=== PATIENT | female | born 1990 | race Caucasian/White ===

== ENCOUNTER 2020-07-22 12:39 | Inpatient (IN) ==
[2020-07-22 11:54] LABS: Basophils % 0.2 %; Eosinophils # 0.1 K/mcL (0.0-0.6); Lymphocytes # 1.9 K/mcL (0.6-4.6); Mean Corpuscular HGB Conc 32.8 g/dL (31.6-35.5); Monocytes # 0.6 K/mcL (0.0-1.3)
[2020-07-22 12:03] LABS: Amphetamine Screen,Urine Negative ng/mL (Cutoff=1000); Barbiturate Screen,Urine Negative ng/mL (Cutoff=200); Benzodiazepines Screen,Urine Negative ng/mL (Cutoff=200); Cannabinoid Screen,Urine Negative ng/mL (Cutoff = 50); Cocaine Screen,Urine Negative ng/mL (Cutoff= 300); Opiate Screen,Urine Negative ng/mL (Cutoff=300); Phencyclidine Screen,Urine Negative ng/mL (Cutoff=25)
[~2020-07-22 12:39] MED LIST: *HR* Nalbuphine 10 MG/ML AMPUL IV PRN; Famotidine 20 MG/2 ML VIAL IVP PRN; Lidocaine 1% 20 ML MDV INFILT PRN; Metoclopramide 10 MG/2 ML VIAL IVP PRN; Naloxone 0.4 MG/ML INJ IVP PRN; Ondansetron 4 MG/2 ML VIAL IVP PRN; Ringers Solution, Lactated 1,000 ML IVC SCH; miSOPROStoL 100 MCG TABLET PO ONE; miSOPROStoL 100 MCG TABLET VG SCH
[2020-07-22 13:50] LABS: Eosinophils % 1.2 %; Hematocrit 38.7 % (35.3-44.9); Hemoglobin 12.7 g/dL (11.5-15.4); Immature Granulocytes % 0.5 % (0-4); Mean Corpuscular Volume 88.4 fL (83.0-100.0); Mean Platelet Volume 10.8 fL (9.4-12.4); Monocytes % 6.8 %; Neutrophils # 6.4 K/mcL (1.6-8.9); Platelet Count 272 K/mcL (140-400); Red Blood Count 4.38 M/mcL (3.82-4.97); Red Cell Distribution Width 12.6 % (11.5-14.5); Segmented Neutrophils % 70.3 %; White Blood Count 9.1 K/mcL (4.3-11.1)
[2020-07-22] MEDS ORDERED: miSOPROStoL 100 MCG TABLET VG SCH (17:30)
[2020-07-22] MEDS ORDERED: Oxytocin 20 units/ LR 1000 mL 20 UNIT/1,000 ML BAG IVC ONE (19:50)
[2020-07-22] MEDS ORDERED: *HR* FentaNYL (PF) 100 MCG/2 ML VIAL ONE (23:53)
[2020-07-22] MEDS ORDERED: *HR* Propofol 200 MG/20 ML VIAL IVP ONE (23:53)
[2020-07-22] MEDS ORDERED: *HR* Midazolam HCl 2 MG/2 ML VIAL ONE (23:53)
[2020-07-22] MEDS ORDERED: Ondansetron 4 MG/2 ML VIAL ONE (23:54)
[2020-07-22] MEDS ORDERED: Dexamethasone 4 MG/ML VIAL ONE (23:54)
[2020-07-22] MEDS ORDERED: Lidocaine -MPF 2% 5 ML VIAL ONE (23:54)
[2020-07-23] MEDS ORDERED: *HR* OxyCODONE Immed Rel 5 MG TABLET PO PRN (00:17)
[2020-07-23] MEDS ORDERED: Ketorolac 30 MG/ML VIAL ONE (00:41)
[2020-07-23] MEDS ORDERED: Acetaminophen IV 1,000 MG/100 ML BAG IVPB ONE (00:46)
[2020-07-23] MEDS ORDERED: Methylergonovine 0.2 MG/ML AMPUL IM ONE (03:33)
== END 2020-07-23 03:34 | disposition home or self-care (01) | DRG 770 ==
LOC: 1NENULAB
PROVIDERS: ADMIT Obstetrics & Gynecology; ATTEND Obstetrics & Gynecology

== ENCOUNTER → 2022-03-08 20:35 | Observation (INO) ==
[2022-03-08 20:01] LABS: Bacteria,Urine Few per hpf (None-Few); Bilirubin,Urine Negative (Negative); Blood,Urine Negative (Negative); Clarity,Urine Turbid (Clear); Color,Urine Light-Yellow (Yellow); Glucose,Urine (UA) Normal (Normal); Ketones,Urine Negative (Negative); Leukocyte Esterase,Urine Moderate (Negative); Mucus,Urine Few per lpf (None-Few); Nitrite,Urine Negative (Negative); Protein,Urine Negative (Neg-Trace); RBC,Urine 0-3 per hpf (0-3); Specific Gravity,Urine < 1.005 (1.010-1.025); Squamous Epithelial Cell,Urine Moderate per hpf (None-Few); Urobilinogen,Urine Normal (Normal)
[~2022-03-08 20:35] MED LIST changes: -*HR* Nalbuphine 10 MG/ML AMPUL IV PRN; -Famotidine 20 MG/2 ML VIAL IVP PRN; -Lidocaine 1% 20 ML MDV INFILT PRN; +MethylPREDNISolone 40 MG/ML VIAL IM ONE; -Metoclopramide 10 MG/2 ML VIAL IVP PRN; -Naloxone 0.4 MG/ML INJ IVP PRN; -Ondansetron 4 MG/2 ML VIAL IVP PRN; -Ringers Solution, Lactated 1,000 ML IVC SCH; -miSOPROStoL 100 MCG TABLET PO ONE; -miSOPROStoL 100 MCG TABLET VG SCH
[2022-03-08 22:22] LABS: Adenovirus Not Detected (Not Detect); Coronavirus 229E Not Detected (Not Detect); Coronavirus HKU1 Not Detected (Not Detect); Coronavirus NL63 Not Detected (Not Detect); Coronavirus OC43 Not Detected (Not Detect); Human Metapneumovirus Not Detected (Not Detect); Human Rhinovirus/Enterovirus Not Detected (Not Detect); Influenza A Subtype 2009 H1 Not Detected (Not Detect); SARS-CoV-2 Not Detected (Not Detect)
[2022-03-08 22:24] LABS: Bordetella Pertussis Not Detected (Not Detect); Chlamydophila pneumoniae Not Detected (Not Detect); Influenza B Not Detected (Not Detect); Mycoplasma pneumoniae Not Detected (Not Detect); Parainfluenza Virus 1 Not Detected (Not Detect); Parainfluenza Virus 2 Not Detected (Not Detect); Parainfluenza Virus 3 Not Detected (Not Detect); Parainfluenza Virus 4 Not Detected (Not Detect); Respiratory Syncytial Virus Not Detected (Not Detect)
== END | disposition home health service (06) ==
LOC: 1NENULAB
PROVIDERS: ADMIT Advanced Practice Midwife; ATTEND Advanced Practice Midwife

== ENCOUNTER 2022-03-30 08:53 | Inpatient (IN) ==
[~2022-03-30 08:53] MED LIST changes: +Famotidine 20 MG/2 ML VIAL IVP PRN; -MethylPREDNISolone 40 MG/ML VIAL IM ONE; +Metoclopramide 10 MG/2 ML VIAL IVP PRN; +Naloxone 0.4 MG/ML INJ IVP PRN
[2022-03-30] MEDS ORDERED: miSOPROStoL 25 MCG TABLET PO PRN (09:34)
[2022-03-30 09:45] LABS: Amphetamine Screen,Urine Negative ng/mL (Cutoff=1000); Barbiturate Screen,Urine Negative ng/mL (Cutoff=200); Benzodiazepines Screen,Urine Negative ng/mL (Cutoff=200); Cannabinoid Screen,Urine Negative ng/mL (Cutoff = 50); Cocaine Screen,Urine Negative ng/mL (Cutoff= 300); Opiate Screen,Urine Negative ng/mL (Cutoff=300); Phencyclidine Screen,Urine Negative ng/mL (Cutoff=25)
[2022-03-30 09:51] LABS: Hematocrit 33.6 % (35.3-44.9); Hemoglobin 10.8 g/dL (11.5-15.4); Mean Corpuscular HGB Conc 32.1 g/dL (31.6-35.5); Mean Corpuscular Hemoglobin 29.3 pg (28.0-33.3); Mean Corpuscular Volume 91.1 fL (83.0-100.0); Mean Platelet Volume 10.2 fL (9.4-12.4); Platelet Count 353 K/mcL (140-400); Red Blood Count 3.69 M/mcL (3.82-4.97); Red Cell Distribution Width 14.7 % (11.5-14.5); White Blood Count 10.7 K/mcL (4.3-11.1)
[2022-03-30 10:31] LABS: Lymphocytes # 6.2 K/mcL (0.6-4.6); Monocytes # 1.1 K/mcL (0.0-1.3); Neutrophils # 3.4 K/mcL (1.6-8.9)
[2022-03-30 10:32] LABS: Platelet Estimate Normal (Normal)
[2022-03-30] MEDS ORDERED: Oxytocin 30 UNIT/503 ML BAG IVC SCH ×2 (13:45→23:50)
[2022-03-30] MEDS: Ringers Solution, Lactated 1,000 ML IVC SCH ×2 (13:47→18:27)
[2022-03-30] MEDS ORDERED: EPHEDrine sulfate 50 MG/10 ML VIAL IVP PRN (14:14)
[2022-03-30] MEDS ORDERED: Epidural Premix (fent/bupiv) 110 ML EP SCH (14:15)
[2022-03-30] MEDS ORDERED: Ropivacaine/PF 0.2% 20 ML VIAL ONE (15:16)
[2022-03-30] MEDS ORDERED: *HR* FentaNYL (PF) 100 MCG/2 ML VIAL ONE (15:16)
[2022-03-30] MEDS ORDERED: 0.9 % Sodium Chloride 1,000 ML ONE (19:37)
[2022-03-30] MEDS ORDERED: Rho Immune Globulin 1,500 UNIT SYRINGE IM PRN (23:50)
[2022-03-30] MEDS ORDERED: Measles/Mumps/Rubella Vacc 0.5 ML VIAL SQ PRN (23:50)
[2022-03-30] MEDS ORDERED: Lanolin 7 G OINT...G. TP PRN (23:50)
[2022-03-30] MEDS ORDERED: Ondansetron ODT 4 MG TAB.RAPDIS SL PRN (23:50)
[2022-03-30] MEDS ORDERED: Benzocaine/Menthol 56 GM AEROSOL SPRAY TP PRN (23:50)
[2022-03-30] MEDS ORDERED: OXYTOCIN/RINGERS LACTATE 10 UNIT/166.6 ML BAG IVC ONE (23:50)
[2022-03-31] MEDS: Ibuprofen 600 MG TABLET PO SCH ×3 (01:21→16:35)
[2022-03-31 05:38] LABS: Basophils % 0.3 %; Eosinophils # 0.1 K/mcL (0.0-0.6); Eosinophils % 0.7 %; Hematocrit 33.6 % (35.3-44.9); Hemoglobin 10.7 g/dL (11.5-15.4); Lymphocytes # 5.4 K/mcL (0.6-4.6); Mean Corpuscular HGB Conc 31.8 g/dL (31.6-35.5); Mean Corpuscular Volume 91.1 fL (83.0-100.0); Mean Platelet Volume 10.2 fL (9.4-12.4); Monocytes % 6.6 %; Neutrophils # 7.9 K/mcL (1.6-8.9); Platelet Count 321 K/mcL (140-400); Red Blood Count 3.69 M/mcL (3.82-4.97); Red Cell Distribution Width 14.6 % (11.5-14.5); Segmented Neutrophils % 54.4 %; White Blood Count 14.6 K/mcL (4.3-11.1)
[2022-03-31 05:42] LABS: Platelet Estimate Normal (Normal)
[2022-03-31] MEDS: Prenatal Vit/FA 1 EACH TABLET PO SCH (07:47)
[2022-03-31 15:52] VITALS: O2SAT 95
[2022-03-31] MEDS: Acetaminophen 325 MG TABLET PO SCH (16:35)
[2022-03-31 21:06] VITALS: BP 110/69; PULSE 93; TEMP 98.8
[2022-04-01] MEDS: Ibuprofen 600 MG TABLET PO SCH ×2 (00:26→08:49)
[2022-04-01] MEDS: Prenatal Vit/FA 1 EACH TABLET PO SCH (08:49)
[2022-04-01] MEDS: Acetaminophen 325 MG TABLET PO SCH (08:50)
== END 2022-04-01 11:28 | disposition home or self-care (01) | DRG 805 ==
LOC: 1NENULAB → 1NENUOBS 23:49
PROVIDERS: ADMIT Obstetrics & Gynecology; ATTEND Obstetrics & Gynecology